=== PATIENT | male | born 1985 | race Caucasian/White ===

== ENCOUNTER 2018-09-06 21:16 | Emergency (ER) | payer OTHER ==
[~2018-09-06] VITALS: Ht 175.3 cm; Wt 104.8 kg
[2018-09-06 21:20] VITALS: Ht 175.3 cm; Wt 104.8 kg
[2018-09-07 00:11] VITALS: BP 155/80
== END 2018-09-07 00:11 | disposition home or self-care (01) ==
LOC: ED 21:16
DX: S62.636B Displaced fracture of distal phalanx of right little finger, initial encounter for open fracture (principal); W20.8XXA Other cause of strike by thrown, projected or falling object, initial encounter; Y93.89 Activity, other specified; Y92.89 Other specified places as the place of occurrence of the external cause; Y99.8 Other external cause status
CPT/HCPCS: 90715; J1885; J2001; Q0092; Q0162